=== PATIENT | female | born 1980 | race Two or more races ===

== ENCOUNTER 2017-11-10 13:13 | Emergency (ER) | payer MEDICAID ==
[~2017-11-10] VITALS: Ht 170.2 cm; Wt 116.1 kg
[2017-11-10 13:22] VITALS: BP 141/95; Ht 170.2 cm; Wt 116.1 kg
== END 2017-11-10 15:45 | disposition home or self-care (01) ==
LOC: ED 13:13
DX: M79.652 Pain in left thigh (principal); Z48.01 Encounter for change or removal of surgical wound dressing; E11.9 Type 2 diabetes mellitus without complications

== ENCOUNTER 2019-11-02 08:05 | Emergency (ER) | payer SELFPAY ==
[~2019-11-02] VITALS: Ht 170.2 cm; Wt 112.9 kg
[2019-11-02 08:12] VITALS: Ht 170.2 cm; Wt 112.9 kg
[2019-11-02 09:47] LABS: ALKALINE PHOSPHATASE 71 U/L (46-116); ALT/SGPT 69 U/L (14-59); AST/SGOT 34 U/L (15-37); BILIRUBIN TOTAL 1.7 mg/dL (0.20-1.00); CARBON DIOXIDE 24.4 mmol/L (21-32); CHLORIDE SERUM 98 mmol/L (98-107); CREATININE SERUM 0.5 mg/dL (0.6-1.0); GFR1 > 60 mL/min; GLUCOSE SERUM 308 mg/dL (74-106); LIPASE 55 IU/L (73-393); POTASSIUM SERUM 3.4 mmol/L (3.5-5.1); SODIUM SERUM 133 mmol/L (136-145); TOTAL PROTEIN, SERUM 7.4 g/dL (6.4-8.2)
[2019-11-02 09:49] LABS: ALBUMIN 3.2 g/dL (3.4-5.0)
[2019-11-02 09:51] LABS: BASOPHIL % 0.1 % (0-2); PLATELET COUNT 172 x10^3mcL (130-400); RED CELL DISTRIBUTION WIDTH 13.8 % (11.5-14.5)
[2019-11-02 10:07] LABS: CALCIUM 8.6 mg/dL (8.5-10.1)
[2019-11-02 11:55] VITALS: BP 116/76
== END 2019-11-02 11:50 | disposition home or self-care (01) ==
LOC: ED 08:05 → EDBD 08:05 → ED 08:05
PROVIDERS: Emergency Medicine
DX: N83.201 Unspecified ovarian cyst, right side (principal); R10.32 Left lower quadrant pain; E87.1 Hypo-osmolality and hyponatremia; E87.6 Hypokalemia; R82.4 Acetonuria; E11.65 Type 2 diabetes mellitus with hyperglycemia
CPT/HCPCS: J7030

== ENCOUNTER 2020-04-20 18:19 | Emergency (ER) | payer OTHER ==
[~2020-04-20] VITALS: Ht 170.2 cm; Wt 121.6 kg
[2020-04-20 18:25] VITALS: Ht 170.2 cm; Wt 121.6 kg
[2020-04-20 19:12] LABS: BASOPHIL % 0.5 % (0-2); PLATELET COUNT 246 x10^3mcL (130-400); RED CELL DISTRIBUTION WIDTH 14.2 % (11.5-14.5)
[2020-04-20 19:23] LABS: CALCIUM 8.6 mg/dL (8.5-10.1); CARBON DIOXIDE 23.7 mmol/L (21-32); CHLORIDE SERUM 99 mmol/L (98-107); CREATININE SERUM 0.8 mg/dL (0.6-1.0); GFR1 > 60 mL/min; GLUCOSE SERUM 397 mg/dL (74-106); POTASSIUM SERUM 3.9 mmol/L (3.5-5.1); SODIUM SERUM 132 mmol/L (136-145)
[2020-04-20 19:27] LABS: ALBUMIN 3.4 g/dL (3.4-5.0); ALKALINE PHOSPHATASE 73 U/L (46-116); ALT/SGPT 66 U/L (14-59); AST/SGOT 35 U/L (15-37); BILIRUBIN TOTAL 0.6 mg/dL (0.20-1.00); TOTAL PROTEIN, SERUM 7.8 g/dL (6.4-8.2)
[2020-04-20 21:43] LABS: AMPHETAMINE QUAL UR NONE DETECTED (See below)
[2020-04-20 23:14] VITALS: BP 115/67
== END 2020-04-20 23:14 | disposition home or self-care (01) ==
LOC: ED 18:19
PROVIDERS: Emergency Medicine
DX: R07.2 Precordial pain (principal); R07.89 Other chest pain; R00.2 Palpitations; E11.65 Type 2 diabetes mellitus with hyperglycemia; F43.20 Adjustment disorder, unspecified
CPT/HCPCS: 83880; J2060; Q0092